=== PATIENT | female | born 1990 | race Caucasian/White ===

== ENCOUNTER 2021-03-24 14:54 | Emergency (ER) | payer MEDICAID ==
[~2021-03-24] VITALS: Ht 170.2 cm; Wt 113.4 kg
[2021-03-24 15:03] VITALS: BP_SYST 162
[2021-03-24] MEDS ORDERED: KETOROLAC TROMETHAMINE 60 MG/2 ML VIAL IM ONE (16:00)
[2021-03-24 16:49] VITALS: BP_SYST 136
== END 2021-03-24 16:46 | disposition home or self-care (01) ==
LOC: SED 14:54
DX: R07.89 Other chest pain (principal); F41.0 Panic disorder [episodic paroxysmal anxiety]
CPT/HCPCS: 71045; 93005; 96372; 99283; J1885